=== PATIENT | female | born 1955 | race Caucasian/White ===

== ENCOUNTER 2017-11-08 20:27 | Emergency (ER) | payer MEDICARE, MEDICAID ==
[~2017-11-08] VITALS: Ht 165.1 cm; Wt 95.3 kg
[~2017-11-08 20:27] MED LIST: ACETAMINOPHEN325 M1 PO; ACETAMINOPHEN650 M5 PO; ADVAIR HFA 230M12 GM INH; ALBUTEROL2.5 MG/0.1; ALBUTEROL2.5 MG/31 INH; ALBUTEROL2.5 MG/32; ALPRAZOLAM; AMBIEN 5 MG TABL5 M1 PO; AUGMENTIN 875875 M1; AUGMENTIN 875875 MG PO; AZITHROMYCIN 2250 MG; BACTRIM; CIPRO500 M1 PO; CIPROFLOXACIN500 M1 PO; CLONAZEPAM 0.50.5 M1; CLONAZEPAM 1 MG1 M1 PO; COLACE100 MG PO; CYMBALTA30 MG PO; CYMBALTA60 MG; CYMBALTA60 MG PO; DOXYCYCLINE 10100 M1; DOXYCYCLINE 10100 MG PO; DULOXETINE HCL30 MG PO; ESKALITH300 MG PO; GRALISE600 MG PO; HYDROCODON-ACE1 EAC5 PO; HYDROCODONE-AP1 EAC2 PO; LIPITOR10 MG PO; LISINOPRIL20 MG PO; LYRICA 50 MG50 MG; LYRICA 50 MG50 MG PO; METAMUCIL WAFER1 PKT PO; METHOCARBAMOL750 MG; MIRALAX17 GM PO; MOBIC15 MG; MUCINEX TA600 MG/TA2 PO; MUSCLE RELAXANT PO; NAPROSYN500 MG PO; NEURONTIN 300300 M1; NEXIUM40 MG PO; NICOTINE TRANSD14 M1; NICOTINE TRANSD21 M1 TRANSDERM; NORCO 5-325 TA1 EACH PO; OXYBUTYNIN; OXYBUTYNIN 5 MG5 M2 PO; PAXIL10 MG; PERCOCET PO; POTASSIUM20; PREDNISONE 10 M10 M1; PREDNISONE 10 M10 MG PO; PREDNISONE 20 M20 M1 PO; PREDNISONE 20 M20 MG PO; PREDNISONE50 MG PO; PROAIR HFA8.5 GM INH; PROTONIX40 M2; PROZAC40 MG; ROBAXIN 750 MG750 M1 PO; SAVELLA25 MG; SAVELLA50 MG PO; SPIRIVA INH; SYMBICORT160 MCG/4. INH; TIZANIDINE HCL4 M1 PO; TUSSIONEX PENN473 ML PO; ULTRAM 50MG TAB50 MG PO; VENTOLIN HFA 1818 GM INH; VIBRAMYCIN 100100 MG PO; VICODIN; VITAMIN D 5050000 I1 PO; VITAMIN D400 UNI1 PO; XARELTO10 MG PO; ZANAFLEX4 MG PO; ZANTAC 150MG T150 MG PO; ZOCOR; ZOLOFT; [UNRECOGNIZED DRUG - REMARK]; amoxicillin PO
[2017-11-08] MEDS ORDERED: PROMETHAZINE V473 ML PO (21:18)
[2017-11-08] MEDS ORDERED: ZPAK PO (21:18)
[2017-11-08] MEDS ORDERED: PREDNISONE 20 M20 MG PO (21:18)
[2017-11-08] MEDS ORDERED: TESSALON PERLE100 MG PO (21:18)
[2017-11-08 21:35] VITALS: BP 150/64
== END 2017-11-08 21:38 | disposition home or self-care (01) ==
LOC: M.ERS 20:27
DX: J44.1 Chronic obstructive pulmonary disease with (acute) exacerbation (principal); M79.7 Fibromyalgia; F41.9 Anxiety disorder, unspecified; F32.9 Major depressive disorder, single episode, unspecified; F17.200 Nicotine dependence, unspecified, uncomplicated; Z96.653 Presence of artificial knee joint, bilateral; Z90.49 Acquired absence of other specified parts of digestive tract; Z90.710 Acquired absence of both cervix and uterus; Z88.1 Allergy status to other antibiotic agents; Z88.2 Allergy status to sulfonamides

== ENCOUNTER 2017-11-21 15:08 | Inpatient (IN) | payer MEDICARE, MEDICAID ==
[~2017-11-21] VITALS: Ht 167.6 cm; Wt 102.1 kg
[~2017-11-21 15:08] MED LIST changes: +PROMETHAZINE V473 ML PO; +TESSALON PERLE100 MG PO; +ZPAK PO
[2017-11-21 15:12] VITALS: BP 103/82
[2017-11-21 15:28] LABS: ABSOLUTE BASOPHILS 0.1 thou/uL (0.0-0.2); ABSOLUTE LYMPHOCYTES 3.1 thou/uL (0.8-5.3); ABSOLUTE NEUTROPHILS 13.5 thou/uL (1.6-8.1); BASOPHILS 0.5 %; EOSINOPHILS 0.2 %; HEMATOCRIT 33.8 % (37.0-47.0); LYMPHOCYTES 17.6 %; MCH 20.4 pg (26.0-34.0); MCHC 29.7 g/dL (28.0-37.0); MCV 68.6 fL (80.0-100.0); MONOCYTES 5.6 %; NUCLEATED RBCS 0 /100WBC; PLATELET COUNT* 364 thou/uL (150-400); POLYS 76.1 %; RBC 4.92 mil/uL (4.20-5.00); RDW-CV 32.6 % (10.5-14.5); WBC 17.8 thou/uL (4.0-11.0)
[2017-11-21 15:38] LABS: ANION GAP 8 mmol/L (7-16); BUN 12 mg/dL (7-18); CALCIUM 8.4 mg/dL (8.5-10.1); CHLORIDE 102 mmol/L (98-107); CO2 29 mmol/L (21-32); CREATININE 0.9 mg/dL (0.6-1.3); GLUCOSE 154 mg/dL (70-99); POTASSIUM 3.1 mmol/L (3.5-5.1); SODIUM 139 mmol/L (136-145)
[2017-11-21 15:49] LABS: ALBUMIN 2.9 g/dL (3.4-5.0); ALKALINE PHOSPHATASE 110 U/L (46-116); LIPASE 80 U/L (73-393); MAGNESIUM 1.8 mg/dL (1.8-2.4); NT-PRO BRAIN NAT PEPTIDE 146 pg/mL (<300); SGOT 14 U/L (15-37); SGPT 22 U/L (30-65); TOTAL BILIRUBIN 0.4 mg/dL (<0.1-1.0); TOTAL PROTEIN 7.4 g/dL (6.4-8.2); TROPONIN-I LEVEL <0.06 ng/mL (<0.06)
[2017-11-21 16:01] LABS: ANISOCYTOSIS 3+; LARGE PLATELETS OCCASIONAL; PLATELET ESTIMATE ADEQUATE
[2017-11-21 16:10] LABS: HYPOCHROMASIA 3+; MICROCYTES 3+
[2017-11-21 16:11] LABS: POLYCHROMASIA Occasional; SCHISTOCYTES Occasional; TARGET CELLS Occasional; TEARDROPS Occasional
[2017-11-21 16:39] VITALS: BP 140/77
[2017-11-21 17:00] VITALS: BP 152/58
[2017-11-21 20:00] VITALS: BP 116/59
[2017-11-22] VITALS: BP 165/65
[2017-11-22 04:00] VITALS: BP 104/44
[2017-11-22 04:41] LABS: HEMOGLOBIN 9.5 gm/dL (12.0-15.0); MCH 20.6 pg (26.0-34.0)
[2017-11-22 04:49] LABS: CALCIUM 8.7 mg/dL (8.5-10.1); POTASSIUM 3.5 mmol/L (3.5-5.1)
[2017-11-22 05:03] LABS: HEMATOCRIT 32.1 % (37.0-47.0); MCHC 29.4 g/dL (28.0-37.0); MCV 69.9 fL (80.0-100.0); NUCLEATED RBCS 0 /100WBC; PLATELET COUNT* 335 thou/uL (150-400); RDW-CV 32.3 % (10.5-14.5); WBC 15.3 thou/uL (4.0-11.0)
[2017-11-22 06:59] LABS: ABSOLUTE LYMPHOCYTES 0.8 thou/uL (0.8-5.3); ABSOLUTE MONOCYTES 0.3 thou/uL (0.0-1.2); ABSOLUTE NEUTROPHILS 14.2 thou/uL (1.6-8.1); ANISOCYTOSIS 3+; HYPOCHROMASIA 2+; MICROCYTES 3+; PLATELET ESTIMATE ADEQUATE
[2017-11-22 08:00] VITALS: BP 130/58
[2017-11-22] MEDS ORDERED: LEVAQUIN 750 M750 MG PO (10:45)
[2017-11-22] MEDS ORDERED: PREDNISONE 10 M10 MG PO (10:46)
[2017-11-22] MEDS ORDERED: NORCO 5-325 TA1 EACH PO (10:47)
[2017-11-22 10:52] VITALS: BP 104/44
[2017-11-22 12:10] VITALS: BP 139/62
--- NOTE | 2017-11-22 18:41 | EKG ---
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 11/22/17 1841 1516 1516 Álvaro Mendes MD, [facility] /EPI
== END 2017-11-22 12:30 | disposition home or self-care (01) | DRG 177 ==
LOC: M.ERS 15:08 → M.TBA-ER 16:10 → M.2W 16:10
PROVIDERS: Emergency Medicine Emergency Medical Services; ADMIT Internal Medicine
DX: J15.6 Pneumonia due to other Gram-negative bacteria (principal); J96.00 Acute respiratory failure, unspecified whether with hypoxia or hypercapnia; J44.1 Chronic obstructive pulmonary disease with (acute) exacerbation; J44.0 Chronic obstructive pulmonary disease with (acute) lower respiratory infection; J18.9 Pneumonia, unspecified organism; F17.210 Nicotine dependence, cigarettes, uncomplicated; M79.7 Fibromyalgia; F41.9 Anxiety disorder, unspecified; F32.9 Major depressive disorder, single episode, unspecified; Z96.653 Presence of artificial knee joint, bilateral; Z96.641 Presence of right artificial hip joint; Z87.01 Personal history of pneumonia (recurrent); Z79.899 Other long term (current) drug therapy; Z88.1 Allergy status to other antibiotic agents; Z90.710 Acquired absence of both cervix and uterus; Z90.49 Acquired absence of other specified parts of digestive tract; Z88.2 Allergy status to sulfonamides

== ENCOUNTER 2017-12-02 20:20 | Emergency (ER) | payer MEDICARE, MEDICAID ==
[~2017-12-02] VITALS: Ht 167.6 cm; Wt 95.3 kg
[~2017-12-02 20:20] MED LIST changes: +LEVAQUIN 750 M750 MG PO
[2017-12-02] MEDS ORDERED: FLEXERIL PO (22:06)
[2017-12-02] MEDS ORDERED: MEDROLDOSEPACK PO (22:06)
[2017-12-02] MEDS ORDERED: NAPROSYN500 MG PO (22:06)
[2017-12-02 22:20] VITALS: BP 107/61
== END 2017-12-02 22:22 | disposition home or self-care (01) ==
LOC: M.ERS 20:20
DX: G89.29 Other chronic pain (principal); M54.9 Dorsalgia, unspecified; F41.9 Anxiety disorder, unspecified; F32.9 Major depressive disorder, single episode, unspecified; J44.9 Chronic obstructive pulmonary disease, unspecified; Z88.1 Allergy status to other antibiotic agents; Z90.710 Acquired absence of both cervix and uterus; Z90.49 Acquired absence of other specified parts of digestive tract; Z96.641 Presence of right artificial hip joint

== ENCOUNTER 2018-02-20 19:00 | Emergency (ER) | payer MEDICARE, MEDICAID ==
[~2018-02-20] VITALS: Ht 160 cm; Wt 97.5 kg
[~2018-02-20 19:00] MED LIST changes: +FLEXERIL PO; +MEDROLDOSEPACK PO
[2018-02-20 20:53] VITALS: BP 127/61
== END 2018-02-20 20:54 | disposition home or self-care (01) ==
LOC: M.ERS 19:00
DX: S93.492A Sprain of other ligament of left ankle, initial encounter (principal); S80.212A Abrasion, left knee, initial encounter; J44.9 Chronic obstructive pulmonary disease, unspecified; M79.7 Fibromyalgia; F41.9 Anxiety disorder, unspecified; F32.9 Major depressive disorder, single episode, unspecified; Z90.710 Acquired absence of both cervix and uterus; Z90.49 Acquired absence of other specified parts of digestive tract; Z96.652 Presence of left artificial knee joint; Z96.641 Presence of right artificial hip joint; Z88.2 Allergy status to sulfonamides; Z88.1 Allergy status to other antibiotic agents; W01.0XXA Fall on same level from slipping, tripping and stumbling without subsequent striking against object, initial encounter; Y93.89 Activity, other specified; Y92.89 Other specified places as the place of occurrence of the external cause; Y99.8 Other external cause status

== ENCOUNTER 2018-05-05 15:35 | Emergency (ER) | payer MEDICARE ==
[~2018-05-05] VITALS: Ht 160 cm; Wt 87.1 kg
[2018-05-05 17:27] VITALS: BP 122/77
== END 2018-05-05 17:05 | disposition home or self-care (01) ==
LOC: M.ERS 15:35
DX: H11.31 Conjunctival hemorrhage, right eye (principal); J44.9 Chronic obstructive pulmonary disease, unspecified; M79.7 Fibromyalgia; Z87.01 Personal history of pneumonia (recurrent); F41.9 Anxiety disorder, unspecified; F32.9 Major depressive disorder, single episode, unspecified; Z96.653 Presence of artificial knee joint, bilateral; Z90.49 Acquired absence of other specified parts of digestive tract; Z85.118 Personal history of other malignant neoplasm of bronchus and lung; Z96.641 Presence of right artificial hip joint; Z88.1 Allergy status to other antibiotic agents; Z88.2 Allergy status to sulfonamides

== ENCOUNTER 2019-02-06 19:39 | Inpatient (IN) | payer OTHER ==
[~2019-02-06] VITALS: Ht 162.6 cm; Wt 102.7 kg
[2019-02-06 19:48] VITALS: BP 197/83
[2019-02-06] MEDS ORDERED: CYMBALTA60 MG PO (19:58)
[2019-02-06] MEDS ORDERED: ANORO ELLIPTA1 EACH INH (19:58)
[2019-02-06] MEDS ORDERED: CYMBALTA30 MG PO (19:59)
[2019-02-06] MEDS ORDERED: LYRICA 75 MG CA75 MG PO (19:59)
[2019-02-06] MEDS ORDERED: CLONAZEPAM 1 MG1 M1 PO (20:00)
[2019-02-06] MEDS ORDERED: ZANTAC 150MG T150 MG PO (20:00)
[2019-02-06] MEDS ORDERED: NORCO 10-325 T1 EACH PO (20:01)
[2019-02-06] MEDS ORDERED: SEROQUEL 50 MG50 MG PO (20:01)
[2019-02-06] MEDS ORDERED: SINGULAIR 10 MG10 M1 PO (20:01)
[2019-02-06] MEDS ORDERED: BUSPIRONE HCL15 MG PO (20:01)
[2019-02-06 20:33] LABS: HEMATOCRIT 42.8 % (37.0-47.0); MCH 28.1 pg (26.0-34.0); MCHC 32.6 g/dL (28.0-37.0); MCV 86.1 fL (80.0-100.0); NUCLEATED RBCS 0 /100WBC; PLATELET COUNT* 192 thou/uL (150-400); RBC 4.97 mil/uL (4.20-5.00); RDW-CV 16.5 % (10.5-14.5); WBC 14.7 thou/uL (4.0-11.0)
[2019-02-06 20:37] LABS: URINE BILIRUBIN NEGATIVE (Negative); URINE BLOOD NEGATIVE (Negative); URINE CLARITY CLEAR; URINE COLOR YELLOW; URINE GLUCOSE-RANDOM NEGATIVE (Negative); URINE KETONES NEGATIVE (Negative); URINE LEUKOCYTES-REFLEX NEGATIVE (Negative); URINE PROTEIN 2+ (Negative); URINE SPECIFIC GRAVITY 1.025 (1.005-1.030); URINE UROBILINOGEN 0.2 E.U./dl (0.2-1.0)
[2019-02-06 20:38] LABS: ANION GAP 9 mmol/L (7-16); BUN 27 mg/dL (7-18); CALCIUM 8.4 mg/dL (8.5-10.1); CHLORIDE 100 mmol/L (98-107); CO2 28 mmol/L (21-32); CREATININE 1.1 mg/dL (0.6-1.3); GLUCOSE 179 mg/dL (70-99); POTASSIUM 3.4 mmol/L (3.5-5.1); SODIUM 137 mmol/L (136-145)
[2019-02-06 20:39] LABS: URINE NITRITE-REFLEX POSITIVE (Negative)
[2019-02-06 20:40] LABS: PROTIME 10.4 Seconds (9.20-11.50)
[2019-02-06 20:47] LABS: ALBUMIN 3.3 g/dL (3.4-5.0); ALKALINE PHOSPHATASE 106 U/L (46-116); MAGNESIUM 2.2 mg/dL (1.8-2.4); SGOT 24 U/L (15-37); SGPT 32 U/L (30-65); TOTAL BILIRUBIN 0.4 mg/dL (<0.1-1.0); TOTAL PROTEIN 6.6 g/dL (6.4-8.2); TROPONIN-I LEVEL <0.06 ng/mL (<0.06)
[2019-02-06 20:51] LABS: BE 3.4 mmol/L (-2 to +3); PCO2 41.9 mmHg (35.0-45.0); PO2 63.4 mmHg (75.0-100.0); pH 7.441 (7.340-7.450)
[2019-02-06 20:55] LABS: CASTS None Seen /LPF (None Seen); SQUAMOUS 4-10 Moderate /LPF (0-3)
[2019-02-06 20:56] LABS: BACTERIA-REFLEX >30 Many /HPF (None Seen); CRYSTALS None Seen /LPF (None Seen); URINE RBC None Seen /HPF (0-2); URINE WBC-REFLEX >25 Many /HPF (0-5)
[2019-02-06 21:29] LABS: ABSOLUTE LYMPHOCYTES 1.5 thou/uL (0.8-5.3); ABSOLUTE MONOCYTES 0.7 thou/uL (0.0-1.2); ABSOLUTE NEUTROPHILS 12.5 thou/uL (1.6-8.1); PLATELET ESTIMATE ADEQUATE
[2019-02-06 22:40] VITALS: BP 129/67
[2019-02-06 23:35] VITALS: BP 130/72
[2019-02-07 04:00] VITALS: BP 134/68
--- NOTE | 2019-02-07 05:35 | NUR ---
PT RECIEVED FROM ED. ALERT AND ORIENTED X4. CALL LIGHT WITHIN REACH AND BED IN LOW POSITION. C/O PAIN, MEDICATION GIVEN PER EMAR. SAT MAINTAINED IN O2. HOURLY ROUNDING DONE FOR PT SAFETY.
[2019-02-07] MEDS ORDERED: NORCO 10-325 T1 EACH PO (07:35)
[2019-02-07 08:10] VITALS: BP 146/69
[2019-02-07 11:17] LABS: BE -0.5 mmol/L (-2 to +3); PCO2 38.4 mmHg (35.0-45.0); PO2 113.4 mmHg (75.0-100.0); pH 7.412 (7.340-7.450)
[2019-02-07 12:00] VITALS: BP 149/78
--- NOTE | 2019-02-07 13:04 | NUR ---
PT A&O CURRENTLY ON 2L O2 VIA NC TOLERATING WELL. PT IS PLEASENT WITH C/O PAIN TO THROAT. VITALS ARE STABLE, UP X1 ASSIST. PT IS RESTING IN BED CALL LIGHT WITHIN REACH. PLEASE SEE ASSESSMENT FOR DETAILS.
--- NOTE | 2019-02-07 15:00 | NUR ---
SW met with pt to complete initial assessment, introduce self, and SW role. Pt alert, oriented. Pt lives at home with 3 sons. Alexandria listed on designated pt admissions representative is now ex dtr in law so Alexandria is no longer involved in pt care. Pt has O2 and other respiratory DME through [facility]. Pt has hx of HH services a while ago after she had knee replacements. Pt does not anticipate any dc needs at this time; SW to remain available to assist with safe dc planning if needs arise.
[2019-02-07 16:00] VITALS: BP 132/61
--- NOTE | 2019-02-07 16:17 | EKG ---
[place] [address] ELECTROCARDIOGRAM REPORT Name: DEANNMAURO RAMESH Room: [address] ADM IN M.R.#: [id number] Admission: 02/06/19 Attend Phys: Ayaka Deleon Discharge: Date of : 57 Report #: [id number] THIS REPORT FOR: //name// [facility] ED Test Date: 2019-02-06 Test Time: 20:21:27 Pat Name: MAURO ZACARIAS Department: Room: [facility] Gender: F Personal Care Home Administrator: [place] : 1955 Requested By: Stephanie Seth Order Number: [id number] MD: Álvaro Mendes Measurements Intervals [place] Rate: 63 P: 78 [place]: 165 QRS: 3 QRSD: 94 T: 39 QT: 408 QTc: 418 Interpretive Statements Sinus rhythm Probable left atrial enlargement Inferior infarct, old possible Compared to ECG 11/21/2017 15:16:35 Myocardial infarct finding now present Electronically Signed On 02-07-2019 16:17:24 CDT by Álvaro Mendes [email or web address] <ELECTRONICALLY SIGNED> By: Álvaro Mendes MD, [facility] 02/07/19 1617 20 20 Álvaro Mendes MD, [facility] /EPI
--- NOTE | 2019-02-07 18:57 | NUR ---
PT RESTING IN BED, MAINTAINING 02 SAT ON 2L O2 VIA NC, DENIES SOB AT THIS TIME. UP X1 ASSIST, C/O PAIN TO THROAT AT A TOLERABLE 3. CALL LIGHT WITHIN REACH, ALL NEEDS MET AT THIS TIME.
[2019-02-07 20:20] VITALS: BP 140/79
[2019-02-08] VITALS: BP 148/82
[2019-02-08 04:00] VITALS: BP 147/69
[2019-02-08 04:54] LABS: ABSOLUTE LYMPHOCYTES 0.5 thou/uL (0.8-5.3); ABSOLUTE MONOCYTES 0.8 thou/uL (0.0-1.2); ABSOLUTE NEUTROPHILS 14.2 thou/uL (1.6-8.1); HEMATOCRIT 41.5 % (37.0-47.0); HEMOGLOBIN 13.2 gm/dL (12.0-15.0); LYMPHOCYTES 3.1 %; MCH 27.8 pg (26.0-34.0); MCHC 31.9 g/dL (28.0-37.0); MCV 87.1 fL (80.0-100.0); MONOCYTES 5.4 %; MPV 8.1 fl. (7.2-11.1); NUCLEATED RBCS 0 /100WBC; PLATELET COUNT* 167 thou/uL (150-400); POLYS 91.5 %; RBC 4.77 mil/uL (4.20-5.00); RDW-CV 17.4 % (10.5-14.5); WBC 15.5 thou/uL (4.0-11.0)
--- NOTE | 2019-02-08 04:54 | NUR ---
PT CARE ASSUMED AT 1930. SAT MAINTAINED IN O2. SOA WITH EXERTION. ALERT AND ORIENTED X4. C/O PAIN, MEDICATION GIVEN PER EMAR. C/O SORE THROAT, INFORMED PHYSICIAN, MEDICATION GIVEN PER EMAR. PT SAYS SHE HAS BLURRED VISION, PLACED ON FALL PRECAUTIONS. HOURLY ROUNDING DONE FOR PT SAFETY.
[2019-02-08 05:10] LABS: CALCIUM 8.4 mg/dL (8.5-10.1); POTASSIUM 4.6 mmol/L (3.5-5.1)
[2019-02-08 07:59] VITALS: BP 148/69
--- NOTE | 2019-02-08 10:00 | NUR ---
ASSUMED CARE AFTER REPORT APPROX 0730. PATIENT SLEEPING UPON FIRST ENCOUNTER. RESPONDS TO VERBAL CUE. 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 O2 SATS >92% 1L NC. NONSKID SOCKS ON BLE. BED ALARM IN USE. CALL LIGHT IN REACH. IN AGREEMENT WITH STUDENT NURSE ASSESSMENT DOCUMENTED.
--- NOTE | 2019-02-08 11:11 | CON ---
[address] [address] CONSULTATION Name: MAURO ZACARIAS Room: [address] IN M.R.#: [id number] Admission: 02/06/19 Attend Phys: Ayaka Deleon Discharge: Date of : 57 Report #: [id number] THIS REPORT FOR: //name// CC: Alfonso Craig DATE OF SERVICE: 02/07/2019 CARDIOLOGY PRELIMINARY EVALUATION AND MANAGEMENT REASON FOR EVALUATION: Evaluate for respiratory distress, acute hypoxemic respiratory failure, shortness of breath, was on BiPAP. HISTORY OF PRESENT ILLNESS: She is a 63-year-old woman with past medical history of lung cancer metastasizing to the brain. Known to have COPD, continues to smoke. Yesterday, she woke up having shortness of breath; cough, productive of yellowish mucus; associated chest tightness; associated hoarseness and sore throat and chills. She came in and was started on treatment and subsequently required BiPAP. On my examination, she is on BiPAP. She is on 2.5 liters, not in distress, speaking in full sentences. Apparently, she had lung cancer, states that since June had a diagnosis, underwent chemotherapy and radiation. Unfortunately, she has brain cancer with brain mets. She has metastatic disease with the surrounding edema on CT done yesterday. She has been on steroids with edema. LABORATORY AND OTHER DATABASE: Her blood gas pH 7.4, pCO2 of 38, pO2 of 113 and this is on 2.5 L on room air. Her partial pressure of oxygen was 63. Her O2 saturation was 85; however, her carboxyhemoglobin was increased. She is a heavy smoker. HEMATOLOGY: White blood cell count is 14.7. PAST MEDICAL HISTORY: Significant for back pain, cellulitis, ankle sprain, history of COPD, history of metastatic lung cancer, mets to the brain. Anxiety. ALLERGIES: CEPHALEXIN, SULFA. SOCIAL HISTORY: Continues to smoke a pack and a half. HOME MEDICATIONS: Reviewed. FAMILY HISTORY: No other family history of lung cancer. PHYSICAL EXAMINATION: GENERAL: On examination, the patient is pleasant, [place] [address] CONSULTATION Name: MAURO ZACARIAS Room: [address]#: [id number] Admission: 02/06/19 Attend Phys: Ayaka Deleon Discharge: Date of : 57 Report #: [id number] VITAL SIGNS: Stable. She is afebrile, pulse 77, respiratory rate 20, blood pressure 149/78. She is on 2.5 liters. HEAD AND NECK: Supple. Oral mucosa clear. CHEST: Clear to auscultation. No wheezing. CARDIOVASCULAR: Regular rhythm. ABDOMEN: Soft, nontender. EXTREMITIES: No edema. Pulses were equal. PSYCHIATRIC: Anxious. LABORATORY DATABASE AND OTHER DATABASE: As above. Her partial pressure of oxygen was adequate, however, was hypoxemic 85 with increased carboxyhemoglobin. White blood cell count 14.7. Suspect a steroid effect. CURRENT MEDICATIONS: Reviewed. ASSESSMENT AND PLAN: 1. Acute respiratory distress, acute respiratory failure related to chronic obstructive pulmonary disease exacerbation. Currently, she is off BiPAP, tolerating well. Agree with steroid treatment 40 mg every 8 hours in the morning, may decrease it to daily. Continue bronchodilator treatment with DuoNeb every 4 and for tomorrow if stable, may decrease to q. 6. She is also on Levaquin for treatment of COPD exacerbation and bronchitis and upper respiratory tract infection. Doubt pneumonia. No consolidation on her CT. 2. Upper respiratory tract infection, causing respiratory distress. 3. Active smoking and need to quit. 4. Brain metastasis with surrounding edema. Currently, she is on steroids. We will defer to primary care doctor, Dr. Frances. This was in details discussed with Dr. Frances. 5. Hypoxemia, need to wean her FiO2. She seems to be improving. Suspect may be able to wean her to room air. May need home oxygen if not able to. However, her blood gas was improving with increase in her partial pressure of oxygen. This was discussed with Dr. Frances. Overall prognosis unfortunately is guarded. <ELECTRONICALLY SIGNED> By: Sarina Treadwell MD 02/08/19 1111 1253 [id number] Treadwell MD /nt
[2019-02-08 12:13] VITALS: BP 155/79
[2019-02-08 15:30] VITALS: BP 129/74
[2019-02-08 20:00] VITALS: BP 135/69
[2019-02-09 00:04] VITALS: BP 125/54
[2019-02-09 04:00] VITALS: BP 163/67
[2019-02-09 04:07] LABS: GLYCOHEMOGLOBIN (HGB A1C) 6.1 % (4.8-5.6)
--- NOTE | 2019-02-09 04:37 | NUR ---
ASUMED CARE AT 1910H, ON RA AND TOLERATED.NO RESPIRATORY DISTRESS. PAIN MEDS GIVEN. NO DECREASE IN NEURO STATUS.CONTINUE MONITORING AND TOWARDS GOALS.
[2019-02-09 05:41] LABS: CALCIUM 8.3 mg/dL (8.5-10.1); MAGNESIUM 2.1 mg/dL (1.8-2.4); POTASSIUM 3.8 mmol/L (3.5-5.1)
[2019-02-09 08:00] VITALS: BP 154/77
[2019-02-09] MEDS ORDERED: NYSTATIN100000 UNI SW&SWALLOW (09:35)
[2019-02-09] MEDS ORDERED: NYAMYC15 GM TOP (09:35)
[2019-02-09] MEDS ORDERED: MUCINEX600 MG PO (09:35)
[2019-02-09] MEDS ORDERED: ACIDOPHILUS1 EAC4 PO (09:35)
[2019-02-09] MEDS ORDERED: LEVAQUIN 750 M750 MG PO (09:35)
[2019-02-09] MEDS ORDERED: PREDNISONE 20 M20 MG PO (09:35)
[2019-02-09 10:59] VITALS: BP 154/77
[2019-02-09 11:01] VITALS: BP 154/77
--- NOTE | 2019-02-09 11:28 | NUR ---
ORDERS FOR DC AND PALLIATIVE CARE CONSULT. DISCUSSED W PT AND GAVE OPTIONS, CHOSE [facility]. CALLED AND FAXED TO [facility], THEY WILL CALL PT TO SET UP VISIT AT HOME. ALSO DISCUSSED DPOA AND GAVE INFO AND COPY. PT HAS HOME O2 W PORTABLE THRU [facility]. GOOD FAMILY AND FRIEND SUPPORT. NO OTHER NEEDS
[2019-02-09 11:33] VITALS: BP 130/81
--- NOTE | 2019-02-09 12:20 | NUR ---
ASSUMED PT CARE REPORT RECEIVED FROM NURSE. PT IS AOX4 COMPLAINS OF PAIN AND REDNESS ITCHINESS UNDER BREAST. NYSTATIN POWDER ORDERED AND GIVEN. ACCUCHECK. PT UP WITH STAND BY ASSIST TO RESTROOM. DISCHARGE PLANNED. DISCHARGE INSTRUCTIONS GIVEN. BIODIESEL PLANT MANAGER AND RT SAW PT IN ROOM. PT QUALIFIED FOR 1 L NC OF O2 AT HOME. PT LEFT UNIT AT 1218 ACCOMPANIED VIA WHEELCHAIR BY SON.
== END 2019-02-09 12:30 | disposition home or self-care (01) | DRG 190 ==
LOC: M.ERS 19:39 → M.2W 21:23 → M.TBA-ER 21:23 → M.2W 22:09
PROVIDERS: Family Medicine; Internal Medicine; Personal Emergency Response Attendant; ADMIT Internal Medicine
DX: J44.1 Chronic obstructive pulmonary disease with (acute) exacerbation (principal); J96.01 Acute respiratory failure with hypoxia; N39.0 Urinary tract infection, site not specified; C34.90 Malignant neoplasm of unspecified part of unspecified bronchus or lung; C79.31 Secondary malignant neoplasm of brain; F41.9 Anxiety disorder, unspecified; F32.9 Major depressive disorder, single episode, unspecified; Z96.641 Presence of right artificial hip joint; J06.9 Acute upper respiratory infection, unspecified; F17.210 Nicotine dependence, cigarettes, uncomplicated; G89.29 Other chronic pain; F11.90 Opioid use, unspecified, uncomplicated; E87.6 Hypokalemia; N18.3 Chronic kidney disease, stage 3 (moderate); M79.7 Fibromyalgia; J40 Bronchitis, not specified as acute or chronic; R73.9 Hyperglycemia, unspecified; T38.0X5A Adverse effect of glucocorticoids and synthetic analogues, initial encounter; R73.03 Prediabetes; Z96.653 Presence of artificial knee joint, bilateral; Z87.81 Personal history of (healed) traumatic fracture; Z85.118 Personal history of other malignant neoplasm of bronchus and lung; Z92.21 Personal history of antineoplastic chemotherapy; Z92.3 Personal history of irradiation; Z88.2 Allergy status to sulfonamides; Z90.710 Acquired absence of both cervix and uterus; Z90.49 Acquired absence of other specified parts of digestive tract; Z88.8 Allergy status to other drugs, medicaments and biological substances; Y92.89 Other specified places as the place of occurrence of the external cause; B37.9 Candidiasis, unspecified

== ENCOUNTER 2019-04-16 18:22 | Emergency (ER) | payer OTHER ==
[~2019-04-16] VITALS: Ht 162.6 cm; Wt 86.6 kg
[~2019-04-16 18:22] MED LIST changes: +ACIDOPHILUS1 EAC4 PO; +ANORO ELLIPTA1 EACH INH; +BUSPIRONE HCL15 MG PO; +LYRICA 75 MG CA75 MG PO; +MUCINEX600 MG PO; +NORCO 10-325 T1 EACH PO; +NYAMYC15 GM TOP; +NYSTATIN100000 UNI SW&SWALLOW; +SEROQUEL 50 MG50 MG PO; +SINGULAIR 10 MG10 M1 PO
[2019-04-16 19:50] VITALS: BP 131/89
== END 2019-04-16 19:51 | disposition home or self-care (01) ==
LOC: M.ERS 18:22
DX: S81.012A Laceration without foreign body, left knee, initial encounter (principal); J44.9 Chronic obstructive pulmonary disease, unspecified; M79.7 Fibromyalgia; F32.9 Major depressive disorder, single episode, unspecified; F41.9 Anxiety disorder, unspecified; F17.210 Nicotine dependence, cigarettes, uncomplicated; Z96.653 Presence of artificial knee joint, bilateral; Z85.118 Personal history of other malignant neoplasm of bronchus and lung; Z87.01 Personal history of pneumonia (recurrent); Z88.2 Allergy status to sulfonamides; Z90.710 Acquired absence of both cervix and uterus; Z90.49 Acquired absence of other specified parts of digestive tract; Z88.1 Allergy status to other antibiotic agents; W01.0XXA Fall on same level from slipping, tripping and stumbling without subsequent striking against object, initial encounter; Y93.89 Activity, other specified; Y92.89 Other specified places as the place of occurrence of the external cause; Y99.8 Other external cause status

== ENCOUNTER 2019-05-14 19:32 | Inpatient (IN) | payer OTHER ==
[~2019-05-14] VITALS: Ht 162.6 cm; Wt 88.0 kg
[2019-05-14 19:34] VITALS: BP 158/76
[2019-05-14 20:08] LABS: ABSOLUTE BASOPHILS 0.1 thou/uL (0.0-0.2); ABSOLUTE EOSINOPHILS 0.1 thou/uL (0.0-0.7); ABSOLUTE LYMPHOCYTES 2.5 thou/uL (0.8-5.3); ABSOLUTE MONOCYTES 0.9 thou/uL (0.0-1.2); ABSOLUTE NEUTROPHILS 10.4 thou/uL (1.6-8.1); BASOPHILS 0.5 %; HEMATOCRIT 43.3 % (37.0-47.0); HEMOGLOBIN 14.1 gm/dL (12.0-15.0); MCH 26.8 pg (26.0-34.0); MCHC 32.6 g/dL (28.0-37.0); MCV 82.2 fL (80.0-100.0); MONOCYTES 6.7 %; MPV 8.5 fl. (7.2-11.1); NUCLEATED RBCS 0 /100WBC; PLATELET COUNT* 303 thou/uL (150-400); POLYS 73.8 %; RBC 5.27 mil/uL (4.20-5.00); RDW-CV 17.2 % (10.5-14.5)
[2019-05-14 20:16] LABS: CALCIUM 9.5 mg/dL (8.5-10.1); POTASSIUM 3.4 mmol/L (3.5-5.1)
[2019-05-14 20:21] LABS: ALBUMIN 3.3 g/dL (3.4-5.0); TOTAL BILIRUBIN 0.3 mg/dL (<0.1-1.0)
[2019-05-14 20:41] LABS: INFLUENZA A ANTIGEN Negative (Negative); INFLUENZA B ANTIGEN Negative (Negative)
[2019-05-14 23:15] VITALS: BP 117/75
[2019-05-14 23:30] VITALS: BP 136/74
[2019-05-15 04:00] VITALS: BP 124/69
[2019-05-15 08:00] VITALS: BP 106/78
--- NOTE | 2019-05-15 10:58 | EKG ---
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 /EPI
[2019-05-15 14:47] VITALS: BP 120/55
[2019-05-15 14:56] VITALS: BP 120/55
[2019-05-15 17:36] VITALS: BP 119/66
[2019-05-15 19:40] VITALS: BP 142/67
[2019-05-15 22:06] LABS: URINE BILIRUBIN NEGATIVE (Negative); URINE BLOOD NEGATIVE (Negative); URINE CLARITY CLEAR; URINE COLOR YELLOW; URINE GLUCOSE-RANDOM NEGATIVE (Negative); URINE KETONES NEGATIVE (Negative); URINE LEUKOCYTES-REFLEX NEGATIVE (Negative); URINE NITRITE-REFLEX NEGATIVE (Negative); URINE PROTEIN 1+ (Negative); URINE SPECIFIC GRAVITY >= 1.030 (1.005-1.030); URINE UROBILINOGEN 0.2 E.U./dl (0.2-1.0)
[2019-05-16] VITALS: BP 87/43
[2019-05-16 04:00] VITALS: BP 119/61
[2019-05-16 08:00] VITALS: BP 117/64
[2019-05-16] MEDS ORDERED: PREDNISONE 10 M10 MG PO (13:48)
[2019-05-16] MEDS ORDERED: LEVAQUIN 750 M750 MG PO (13:48)
[2019-05-16 15:14] VITALS: BP 114/58
[2019-05-16 15:16] VITALS: BP 114/58
== END 2019-05-16 16:20 | disposition home or self-care (01) | DRG 871 ==
LOC: M.ERS 19:32 → M.2W 21:51 → M.TBA-ER 21:51 → M.2W 23:40
PROVIDERS: Emergency Medicine; ADMIT Family Medicine
DX: A41.9 Sepsis, unspecified organism (principal); J18.9 Pneumonia, unspecified organism; J44.1 Chronic obstructive pulmonary disease with (acute) exacerbation; J44.0 Chronic obstructive pulmonary disease with (acute) lower respiratory infection; J20.9 Acute bronchitis, unspecified; F17.210 Nicotine dependence, cigarettes, uncomplicated; M79.7 Fibromyalgia; F41.9 Anxiety disorder, unspecified; F32.9 Major depressive disorder, single episode, unspecified; M54.5 Low back pain; Z96.653 Presence of artificial knee joint, bilateral; G89.29 Other chronic pain; Z96.643 Presence of artificial hip joint, bilateral; Z85.841 Personal history of malignant neoplasm of brain; Z85.110 Personal history of malignant carcinoid tumor of bronchus and lung; Z90.710 Acquired absence of both cervix and uterus; Z92.21 Personal history of antineoplastic chemotherapy; Z90.49 Acquired absence of other specified parts of digestive tract; Z90.89 Acquired absence of other organs; Z79.891 Long term (current) use of opiate analgesic; Z79.899 Other long term (current) drug therapy; Z88.1 Allergy status to other antibiotic agents; Z88.2 Allergy status to sulfonamides; Z88.8 Allergy status to other drugs, medicaments and biological substances; Z82.49 Family history of ischemic heart disease and other diseases of the circulatory system; Z80.8 Family history of malignant neoplasm of other organs or systems; Z83.3 Family history of diabetes mellitus; Z81.8 Family history of other mental and behavioral disorders; Z23 Encounter for immunization